=== PATIENT | female | born 1930 | race Caucasian/White ===

== ENCOUNTER 2018-08-16 06:08 | Day surgery (SDC) | payer OTHER ==
[2018-08-15 11:30] VITALS: BMI 36.5
--- NOTE | 2018-08-15 15:21 | HP ---
- Patient Scheduled date of Surgery: 08/16/18 Scheduled Surgical Procedure: Phacoemulsification and cataract extraction with PCIOL Affected Eye: Right Chief Complaint (Indication for surgery): Decreased vision affecting ADLs, Decreased vision impairing reading - Ocular History Other Eye History: Other (ptosis , blepharitis , jana) Eye Medications: vigamox tid od Previous Eye Surgery: none - Medical History Illnesses: Hypertension, Hypercholesterolemia, Other (gerd) Current Medications: Ambulatory Orders Calcium (Oyster Shell) [Os-Terrance 500Mg -] 600 mg PO DAILY 08/15/18 Diclofenac Potassium 50 mg PO HS 08/15/18 Diltiazem HCl [Diltiazem 24Hr Cd] 180 mg PO HS 08/15/18 Losartan Potassium [Cozaar -] 25 mg PO DAILY 08/15/18 Rosuvastatin [Crestor -] 10 mg PO DAILY 08/15/18 Allergies/Adverse Reactions: Allergies Allergy/AdvReac Type Severity Reaction Status Date / Time No Known Allergies Allergy Verified 08/15/18 11:30 Ocular Examination - Best Corrected Visual Acuity Distance: Right eye: 20/40 Distance: Left eye: 20/40 - External/Slit Lamp Examination Abnormalities: ptosis, decreased TBUT - Intraocular Pressure Intraocular Pressure - Right eye: 16 Intraocular Pressure-Left eye: 16 - Lens Lens: 2+ NS 2+ cortical - Vitreous/Retina Vitreous/Retina: c:d 0.2 m/v/p wnl - Special Examination M - Right eye: +1.75-0.50 x 120 M - Left eye: +2.50 - 1.50 x 085 K - Right eye: 45.25/46.00 x 35 K - Left eye: 44.75/46 x 135 AL - Right eye: 22.14 AL - Left eye: 22.25 IOL bag: +23.0 AUOOTO IOL sulcus: +22.0 MN60 AC IOL AC: +19.0 MTA4uo - Plan Plan: Phacoemulsification and cataract extraction - IOL Right eye Post-hospital care will be provided in office on: 08/17/18
[~2018-08-16 06:08] MED LIST: TOBRAMYCIN/DEXAMETHASONE OPHTH. OINTMENT 1 TUBE TP ONE
[2018-08-16] MEDS ORDERED: CIPROFLOXACIN HCL 0.3% OPHTH 2.5ML BOTTLE ONE (06:30)
[2018-08-16] MEDS ORDERED: PHENYLEPHRINE 2.5% OPHTH SOLN 15 ML BOTTLE ONE (06:30)
[2018-08-16] MEDS ORDERED: KETOROLAC TROMETHAMINE 0.5% EYE DROP 1 DROP DROPS ONE (06:31)
[2018-08-16] MEDS ORDERED: TROPICAMIDE 1% OPHTH SOLN 15 ML BOTTLE ONE (06:31)
[2018-08-16] MEDS: KETOROLAC TROMETHAMINE 0.5% EYE DROP 1 DROP DROPS OP SCH ×2 (06:40→06:50)
[2018-08-16] MEDS: PHENYLEPHRINE 2.5% OPHTH SOLN 15 ML BOTTLE OP SCH ×3 (06:40→07:00)
[2018-08-16] MEDS: CIPROFLOXACIN HCL 0.3% OPHTH 2.5ML BOTTLE OP SCH ×3 (06:40→07:00)
[2018-08-16] MEDS: TROPICAMIDE 1% OPHTH SOLN 15 ML BOTTLE OP SCH ×2 (06:40→07:00)
[2018-08-16] MEDS ORDERED: ACETAMINOPHEN 325 MG TABLET (FP) PO PRN (06:45)
[2018-08-16] MEDS ORDERED: CHONDROITIN SU A/HYALUR SOD 1 KIT ONE (07:17)
--- NOTE | 2018-08-16 07:21 | HP ---
History & Physical Update - History History: Change (see notes) (Reviewed Dr. Spencer H and p from 07/31/18 Patient also has IBS. Taking ASA) - Physical Physical: No Change - Assessment Assessment: No Change - Plan Plan: No Change
[2018-08-16] MEDS ORDERED: TOBRAMYCIN/DEXAMETHASONE OPHTH. OINTMENT 1 TUBE ONE (07:26)
[2018-08-16] MEDS ORDERED: EPINEPHrine/PF 1 MG/1 ML (1:1,000) AMPULE ONE (07:27)
[2018-08-16] MEDS ORDERED: BSS (NA/CA/MG/K) BALANCED SALT SOLUTION OPHTH SOLN 15 ML BOTTLE ONE (07:27)
[2018-08-16] MEDS ORDERED: TETRACAINE 0.5% OPHTH SOLN 2 ML BOTTLE ONE (07:27)
[2018-08-16] MEDS ORDERED: POVIDONE-IODINE 5% OPHTHALMIC PREP 30 ML SOLUTION ONE (07:27)
[2018-08-16] MEDS ORDERED: MIDAZOLAM HCL 2 MG/2 ML SINGLE DOSE VIAL ONE (07:47)
[2018-08-16] MEDS ORDERED: TETRACAINE 0.5% OPHTH SOLN 2 ML BOTTLE OD ONE (07:50)
[2018-08-16] MEDS ORDERED: POVIDONE-IODINE 5% OPHTHALMIC PREP 30 ML SOLUTION OD ONE (07:51)
[2018-08-16] MEDS ORDERED: BSS (NA/CA/MG/K) BALANCED SALT SOLUTION OPHTH SOLN 15 ML BOTTLE OD ONE (07:59)
[2018-08-16] MEDS ORDERED: CHONDROITIN SU A/HYALUR SOD 1 KIT IO ONE (07:59)
[2018-08-16] MEDS ORDERED: LIDOCAINE HCL 1% PRESERVATIVE FREE - 30ML VIAL IO ONE (07:59)
[2018-08-16] MEDS ORDERED: EPINEPHrine/PF 1 MG/1 ML (1:1,000) AMPULE SQ ONE (08:05)
[2018-08-16] MEDS ORDERED: TOBRAMYCIN/DEXAMETHASONE OPHTH. OINTMENT 1 TUBE TP ONE (08:32)
--- NOTE | 2018-08-16 08:36 | OP ---
Ophthalmology Operative Note Pre-Operative Diagnosis: Cataract Affected Eye: Right Operation: Phacoemulsification and cataract extraction with PCIOL Findings: NS cataract right eye Post-Operative Diagnosis: Same as Pre-op Product Scientist: None Anesthesiologist: Anayeli Cash MD Anesthesia: Topical Specimens Removed: none Estimated blood loss: < 1cc Drains & Tubes with Location: none Operative Report Dictated: Yes
--- NOTE | 2018-08-16 09:10 | OP ---
DATE OF OPERATION: 08/16/2018 PREOPERATIVE DIAGNOSIS: Nuclear sclerotic cataract, right eye. POSTOPERATIVE DIAGNOSIS: Nuclear sclerotic cataract, right eye. PROCEDURE: Phacoemulsification and cataract extraction with insertion of posterior chamber intraocular lens, right eye. SURGEON: Megan Perez MD EVENING ANCHOR: None. ANESTHESIA: Topical. ANESTHESIOLOGIST: Anayeli Cash MD OPERATIVE PROCEDURE: Following satisfactory intravenous sedation, the patient received tetracaine eye drops and was prepped and draped in the usual sterile fashion, so as to expose only the right eye. Ophthalmic Betadine was instilled into the inferior fornix. The lashes were taped out of the surgical field. An eyelid speculum was placed into the right eye. A paracentesis was made in superotemporal clear cornea at the limbus. Nonpreserved lidocaine, 0.5 mL, was injected into the anterior chamber. Viscoelastic material was instilled into the anterior chamber via the paracentesis. A 2.4-mm keratome was then used to create the main incision in temporal clear cornea at the limbus. A continuous curvilinear capsulorrhexis was performed using a cystotome and Utrata forceps. Hydrodissection of the lens cortex was performed using BSS on a cannula until the nucleus was noted to be freely rotating. The phacoemulsification tip was inserted via the main wound and used to sculpt 2 perpendicular grooves in the lens nucleus. The nucleus was cracked into 4 quadrants. Each quadrant was lifted out of the capsule into the iris plane and individually phacoemulcified. The remaining cortical material was then aspirated using the irrigation and aspiration port. The capsular bag was inflated with Provisc, and a preloaded AcrySof lens, model AU00T0, power +23.0 diopters was injected into the capsular bag and centered using a Sinskey hook. The residual viscoelastic material was removed from the anterior chamber using irrigation and aspiration. The wound edges were hydrated using BSS. The wound was tested for leakage. It was found to be watertight. TobraDex ointment was placed in the eye, and the speculum was removed from the eye, and the eyelid was closed. A sterile dressing and shield were placed over the eye, and the patient was transferred to the recovery room in stable condition, told to follow up in 1 day. MEGAN PEREZ M.D. SHAYLEE/[id number]
[2018-08-16 10:05] VITALS: BP 140/70; PULSE 78; TEMP 97.8
== END 2018-08-16 10:00 | disposition home or self-care (01) ==
LOC: JASU-SURG 06:08
PROVIDERS: ATTEND Ophthalmology
PROC: 08RJ3JZ Replacement of Right Lens with Synthetic Substitute, Percutaneous Approach (ICD-10-PCS; principal; 2018-08-16 07:30)
DX: H25.11 Age-related nuclear cataract, right eye (principal)

== ENCOUNTER → 2018-09-13 | Day surgery (SDC) | payer OTHER ==
[2018-09-12 14:12] VITALS: BMI 36.5
--- NOTE | 2018-09-12 15:12 | HP ---
- Patient Scheduled date of Surgery: 09/13/18 Scheduled Surgical Procedure: Phacoemulsification and cataract extraction with PCIOL Affected Eye: Left Chief Complaint (Indication for surgery): Decreased vision affecting ADLs, Decreased vision impairing reading - Ocular History Other Eye History: Other (none) Eye Medications: cipro Previous Eye Surgery: s/p ce/pciol OD - Medical History Illnesses: Hypertension, Hypercholesterolemia, Other (gerd) Current Medications: Ambulatory Orders Calcium (Oyster Shell) [Os-Terrance 500Mg -] 600 mg PO DAILY 08/15/18 Diclofenac Potassium 50 mg PO HS 08/15/18 Diltiazem HCl [Diltiazem 24Hr Cd] 180 mg PO HS 08/15/18 Losartan Potassium [Cozaar -] 25 mg PO DAILY 08/15/18 Rosuvastatin [Crestor -] 10 mg PO DAILY 08/15/18 Aspirin Coated [Ecotrin -] 81 mg PO DAILY 09/12/18 Allergies/Adverse Reactions: Allergies Allergy/AdvReac Type Severity Reaction Status Date / Time No Known Allergies Allergy Verified 09/12/18 14:28 Ocular Examination - Best Corrected Visual Acuity Distance: Right eye: 20/25 Distance: Left eye: 20/40 - External/Slit Lamp Examination Abnormalities: decreased TBUT - Intraocular Pressure Intraocular Pressure - Right eye: 15 Intraocular Pressure-Left eye: 16 - Lens Lens: 2+ NS 1+ cortical - Vitreous/Retina Vitreous/Retina: C:D 0.3 m/v/p wnl - Special Examination M - Right eye: plano-1.75 x 130 M - Left eye: +2.25 -0.50 x 085 K - Right eye: 45/46.75 x 030 K - Left eye: 45/46.25 x 145 AL - Right eye: 22.14 AL - Left eye: 22.25 IOL bag: +22.5 AUOOTO IOL sulcus: +21.5 MN60 AC IOL AC: +18.5 MTA 4UO - Impression Impression: Cataract Left Eye - Plan Plan: Phacoemulsification and cataract extraction - IOL Left eye Post-hospital care will be provided in office on: 09/14/18
[~2018-09-13] MED LIST changes: +ACETAMINOPHEN 325 MG TABLET (FP) PO PRN; +BSS (NA/CA/MG/K) BALANCED SALT SOLUTION OPHTH SOLN 15 ML BOTTLE ONE; +BSS (NA/CA/MG/K) BALANCED SALT SOLUTION OPHTH SOLN 15 ML BOTTLE OS ONE; +CHONDROITIN SU A/HYALUR SOD 1 KIT IO ONE; +CHONDROITIN SU A/HYALUR SOD 1 KIT ONE; +CIPROFLOXACIN HCL 0.3% OPHTH 2.5ML BOTTLE ONE; +EPINEPHrine/PF 1 MG/1 ML (1:1,000) AMPULE SQ ONE; +KETOROLAC TROMETHAMINE 0.5% EYE DROP 1 DROP DROPS ONE; +LIDOCAINE HCL 1% PRESERVATIVE FREE - 30ML VIAL IO ONE; +LIDOCAINE HCL/PF 1% SDV 5ML VIAL ONE; +MIDAZOLAM HCL 2 MG/2 ML SINGLE DOSE VIAL ONE; +PHENYLEPHRINE 2.5% OPHTH SOLN 15 ML BOTTLE ONE; +POVIDONE-IODINE 5% OPHTHALMIC PREP 30 ML SOLUTION OS ONE; +TETRACAINE 0.5% OPHTH SOLN 2 ML BOTTLE OS ONE; +TOBRAMYCIN/DEXAMETHASONE OPHTH. OINTMENT 1 TUBE OS ONE; -TOBRAMYCIN/DEXAMETHASONE OPHTH. OINTMENT 1 TUBE TP ONE; +TROPICAMIDE 1% OPHTH SOLN 15 ML BOTTLE ONE
[2018-09-13] MEDS: CIPROFLOXACIN HCL 0.3% OPHTH 2.5ML BOTTLE OP SCH ×2 (07:25→07:30)
[2018-09-13] MEDS: TROPICAMIDE 1% OPHTH SOLN 15 ML BOTTLE OP SCH ×3 (07:25→07:35)
[2018-09-13] MEDS: KETOROLAC TROMETHAMINE 0.5% EYE DROP 1 DROP DROPS OP SCH ×3 (07:25→07:35)
[2018-09-13] MEDS: PHENYLEPHRINE 2.5% OPHTH SOLN 15 ML BOTTLE OP SCH ×3 (07:25→07:35)
--- NOTE | 2018-09-13 08:26 | HP ---
History & Physical Update - History History: No Change - Physical Physical: No Change - Assessment Assessment: No Change - Plan Plan: No Change (Reviewed Dr. Johanna Elam and P from 07/31/18 no changes)
--- NOTE | 2018-09-13 09:17 | OP ---
Ophthalmology Operative Note Pre-Operative Diagnosis: Cataract Affected Eye: Left Operation: Phacoemulsification and cataract extraction with PCIOL Findings: NS Cataract left eye Post-Operative Diagnosis: Same as Pre-op Carpenter Helper Hardwood Flooring: None Anesthesiologist: Anayeli Cash MD Anesthesia: Topical Specimens Removed: none Estimated blood loss: < 1cc Drains & Tubes with Location: none Operative Report Dictated: Yes
--- NOTE | 2018-09-13 09:40 | OP ---
DATE OF OPERATION: 09/13/2018 PREOPERATIVE DIAGNOSIS: Nuclear sclerotic cataract, left eye. POSTOPERATIVE DIAGNOSIS: Nuclear sclerotic cataract, left eye. PROCEDURE: Phacoemulsification and cataract extraction with insertion of posterior chamber intraocular lens, left eye. SURGEON: Megan Perez MD DIGITAL ACCOUNT COORDINATOR: None. ANESTHESIA: Topical. ANESTHESIOLOGIST: Anayeli Cash MD OPERATIVE PROCEDURE: The patient received TetraVisc eye drops and was gently sedated and prepped and draped in the usual sterile fashion so as to expose only the left eye. Ophthalmic Betadine was instilled into the inferior fornix, and the lashes were taped out of the surgical field. A speculum was placed into the left eye. A paracentesis was made in inferotemporal clear cornea at the limbus. Next, 0.5 mL of non-preserved lidocaine 1% was injected into the anterior chamber. Viscoelastic material was instilled into the anterior chamber via the paracentesis. A 2.4-mm keratome was then used to create the main incision in temporal clear cornea at the limbus. A continuous curvilinear capsulorrhexis was performed using a cystotome and Utrata forceps. Hydrodissection of the lens cortex was performed using BSS on a cannula until the nucleus was noted to be freely rotating. The phacoemulsification tip was inserted via the main wound and used to sculpt 2 perpendicular grooves into the lens nucleus. The nucleus was cracked into 4 quadrants using 2 instruments. Each quadrant was lifted out of the capsule into the iris plane and individually phacoemulsified. The remaining cortical material was then aspirated using the irrigation and aspiration port. The capsular bag was inflated using Provisc, and a preloaded AcrySof lens model AU00T0, power +22.5 diopters was injected into the capsular bag and centered using a Sinskey hook. The residual viscoelastic material was removed from the anterior chamber using irrigation and aspiration. The wound edges were hydrated using BSS. The wound was tested for leakage; it was found to be watertight. TobraDex ointment was placed into the eye and the speculum was removed from the eye and the eyelid was closed. A sterile dressing and shield were placed over the eye, and the patient was transferred to the recovery room in stable condition, told to follow up in 1 day. MEGAN PEREZ M.D. SHAYLEE/[id number]
[2018-09-13 09:48] VITALS: PULSE 64; TEMP 97.9
[2018-09-13 11:04] VITALS: BP 152/60
== END | disposition home or self-care (01) ==
LOC: JASU-SURG 07:04
PROVIDERS: ATTEND Ophthalmology
PROC: 08RK3JZ Replacement of Left Lens with Synthetic Substitute, Percutaneous Approach (ICD-10-PCS; principal; 2018-09-13 08:30)
DX: H25.12 Age-related nuclear cataract, left eye (principal)